=== PATIENT | male | born 1955 | race Caucasian/White ===

== ENCOUNTER 2021-04-10 07:55 | Outpatient (RCR) | payer MEDICARE, OTHER ==
[~2021-04-10 07:55] MED LIST: ASP325T PO; ATOR40TA PO; CLOP75TA PO; EZET10TA5 PO; HYDR1TAB86 PO; INSASP10V; LISI2.5T PO; TMSL.4C PO; lovenox SQ
== END 2021-04-27 09:30 | disposition home or self-care (01) ==
PROVIDERS: ATTEND Internal Medicine
DX: G71.09 Other specified muscular dystrophies (principal)